=== PATIENT | male | born 1970 | race Caucasian/White ===

== ENCOUNTER 2018-06-13 05:20 | Inpatient (IN) ==
[2018-06-07 15:41] LABS: Basophils # (Auto) 0 K/mcL (0.0-0.3); Basophils % (Auto) 0.3 % (0.0-2.0); Eosinophils # (Auto) 0.1 K/mcL (0.0-0.7); Eosinophils % (Auto) 1.3 % (0.0-7.0); Lymphocytes # (Auto) 1.9 K/mcL (1.5-4.8); Lymphocytes % (Auto) 22.5 % (15.5-49.0); Mean Cell Volume 88.2 fL (80.0-100.0); Mean Corpuscular HGB Conc 32.8 g/dL (31.0-36.0); Monocytes # (Auto) 0.8 K/mcL (0.1-0.9); Monocytes % (Auto) 8.9 % (1.0-12.0); Platelet Count 406 K/mcL (140-440); RBC 5.19 M/mcL (4.50-5.90); Red Cell Distribution Width 12.9 % (11.5-14.5)
[2018-06-07 16:25] LABS: Appearance,Urine CLEAR; Bilirubin,Urine NEG (NEG); Color,Urine YELLOW; Glucose,Urine (UA) NEGATIVE (NEG); Leukocyte Esterase,Urine NEG /uL (NEG); Protein,Urine NEG (NEG); Specific Gravity,Urine 1.019 (1.000-1.035); Urine Blood NEG mg/dL (<0.03); Urobilinogen,Urine NEG (NEG)
[2018-06-07 16:34] LABS: Blood Urea Nitrogen 16 mg/dl (6-20)
[2018-06-13] MEDS ORDERED: PREGABALIN 75 MG CAPSULE PO SCH (07:00)
[2018-06-13] MEDS ORDERED: 0.9 % SODIUM CHLORIDE 9 ML, KETOROLAC 30 MG, ROPIVACAINE HCL/PF 49.5 ML, EPINEPHrine 0.... IJ SCH (07:00)
[2018-06-13] MEDS ORDERED: oxyCODONE 10 MG TAB.ER.12H PO SCH (07:00)
[2018-06-13] MEDS ORDERED: ceFAZolin 2 GM in DEXTROSE 5% IN WATER 50 ML IV SCH (07:00)
[2018-06-13] MEDS ORDERED: CELECOXIB 200 MG CAPSULE PO SCH (07:00)
[2018-06-13] MEDS ORDERED: SCOPOLAMINE 1 PATCH PATCH TOPICAL ONE (07:04)
[2018-06-13] MEDS ORDERED: MIDAZOLAM 5 MG/5 ML VIAL IV ONE (07:30)
[2018-06-13] MEDS ORDERED: PROPOFOL 200 MG/20 ML VIAL IV ONE (07:30)
[2018-06-13] MEDS ORDERED: LIDOCAINE HCL/PF 100 MG/5 ML SYRINGE IV ONE (07:30)
[2018-06-13] MEDS ORDERED: ePHEDrine 50 MG/ML AMPUL IV ONE (07:30)
[2018-06-13] MEDS ORDERED: PHENYLEPHRINE 10 MG/ML VIAL IV ONE (07:30)
[2018-06-13] MEDS ORDERED: TRANEXAMIC ACID 1,000 MG/10 ML VIAL IV ONE (07:30)
[2018-06-13] MEDS ORDERED: ROPIVACAINE HCL/PF 20 ML VIAL IJ ONE (07:30)
[2018-06-13] MEDS ORDERED: DEXAMETHASONE 4 MG/ML VIAL IV ONE (07:30)
[2018-06-13] MEDS ORDERED: GENTAMICIN SULFATE 800 MG/20 ML VIAL IR ONE (08:17)
--- NOTE | 2018-06-13 09:13 | Brief Operative Note ---
Date of procedure: 06/13/18 Pre-op diagnosis: right knee osteoarthritis, retained hardware Post-op diagnosis: same Procedure: right total knee arthroplasty, hardware removal Grafts/Implants: Yes Anesthesia: spinal Complications: none Surgeon: Ilir Alvarado Mail Processor: eBcky Gotti Estimated blood loss (cc): 150 Tourniquet Time (Minutes): 72 Specimens Removed/Pathology: none sent Condition: stable Disposition: PACU
[2018-06-13] MEDS ORDERED: MAG HYDROX/AL HYDROX/SIMETH 30 ML ORAL.SUSP PO PRN (09:14)
[2018-06-13] MEDS ORDERED: BENZOCAINE/MENTHOL 1 LOZENGE PO PRN (09:14)
[2018-06-13] MEDS ORDERED: MAGNESIUM HYDROXIDE 30 ML ORAL.SUSP PO PRN (09:14)
[2018-06-13] MEDS ORDERED: POLYETHYLENE GLYCOL 3350 17 GM PACKET PO PRN (09:14)
[2018-06-13] MEDS ORDERED: BISACODYL 10 MG SUPP.RECT PR PRN (09:14)
[2018-06-13] MEDS ORDERED: FLEETS ADULT ENEMA PR PRN (09:14)
[2018-06-13] MEDS ORDERED: TRANEXAMIC ACID 1,000 MG/10 ML VIAL IV SCH (09:14)
[2018-06-13] MEDS ORDERED: ONDANSETRON 4 MG ODT TABLET SL PRN (09:14)
[2018-06-13] MEDS ORDERED: diphenhydrAMINE 50 MG/ML VIAL IV PRN (09:34)
[2018-06-13] MEDS ORDERED: IPRATROPIUM/ALBUTEROL 3 ML AMPUL.NEB NEB PRN (09:34)
[2018-06-13] MEDS ORDERED: HYDROmorphone 2 MG/ML VIAL IV PRN (09:34)
[2018-06-13] MEDS ORDERED: ONDANSETRON 4 MG/2 ML VIAL IV PRN (09:34)
[2018-06-13] MEDS ORDERED: FLUMAZENIL 0.1 MG/ML ML IV PRN (09:34)
[2018-06-13] MEDS ORDERED: ePHEDrine 50 MG/ML AMPUL IV PRN (09:34)
[2018-06-13] MEDS ORDERED: KETOROLAC 15 MG/ML VIAL IV PRN (09:34)
[2018-06-13] MEDS ORDERED: ACETAMINOPHEN 1,000 MG/100 ML BOTTLE IV ONE (09:34)
[2018-06-13] MEDS ORDERED: METHOCARBAMOL 1,000 MG/10 ML VIAL IV PRN (09:34)
[2018-06-13] MEDS ORDERED: NALOXONE HCL 0.4 MG/ML VIAL IV PRN (09:34)
[2018-06-13] MEDS ORDERED: MEPERIDINE 25 MG/ML SYRINGE IV PRN (09:34)
[2018-06-13] MEDS ORDERED: ATROPINE SULFATE 0.4 MG/ML VIAL IV PRN (09:34)
[2018-06-13] MEDS ORDERED: METOPROLOL TARTRATE 5 MG/5 ML VIAL IV PRN (09:34)
[2018-06-13] MEDS ORDERED: LACTATED RINGERS 1,000 ML IV SCH (09:45)
[2018-06-13] MEDS: fentaNYL 100 MCG/2 ML VIAL IV PRN ×4 (09:59→10:09)
--- NOTE | 2018-06-13 09:59 | XRay Report ---
CLINICAL INFORMATION: Post-Op Total Knee COMPARISON: None. FINDINGS: Total knee prosthesis is anatomically aligned. No osseous abnormality. Periarticular gas and soft tissue is seen as expected IMPRESSION: Negative Interpreted and Authenticated by: Ilir Cota 06/13/18
[2018-06-13] MEDS: 0.9 % SODIUM CHLORIDE 1,000 ML IV SCH ×2 (10:29→18:19)
[2018-06-13] MEDS: KETOROLAC 15 MG/ML VIAL IV SCH ×3 (11:00→23:24)
--- NOTE | 2018-06-13 11:40 | Operative Note ---
DATE OF OPERATION: 06/13/2018 PREOPERATIVE DIAGNOSES: 1. Degenerative joint disease, right knee. 2. Right knee retained hardware. POSTOPERATIVE DIAGNOSES: 1. Degenerative joint disease, right knee. 2. Right knee retained hardware. PROCEDURE PERFORMED: 1. Right total knee arthroplasty. 2. Right knee hardware removal. SURGEON: Polo Alvarado M.D. AUTOMATION SPECIALIST SURGEON: Becky Gotti PA-C. ANESTHESIA: Spinal with LMA assist. ESTIMATED BLOOD LOSS: 150 mL. COMPLICATIONS: None noted. SPECIMENS REMOVED: None. DRAINS: None. TOURNIQUET TIME: 72 minutes at 300 mmHg. IMPLANTS: DePuy CMW2 bone cement 20 grams x4; DePuy Attune femoral posterior stabilized size 7 right, cemented; DePuy Attune tibial insert fixed bearing posterior stabilized size 7, 10 mm AOX; DePuy Attune tibial base fixed bearing size 6, cemented; DePuy Attune patella medialized dome 38 mm cemented AOX. INDICATIONS: The patient has had a long-standing history of worsening pain in the knee that has failed conservative treatment. Radiographs have confirmed advanced degenerative joint disease. After a long discussion about treatment options, the patient elected to proceed with a knee arthroplasty. The risks and benefits were discussed with the patient in detail including, but not limited to, the risks of anesthesia, problems with the heart or lungs related to anesthesia, infection, compromise or injury to the nerves and blood vessels, deep venous thrombosis, pulmonary embolism, pneumonia, continued pain after surgery, worsening pain or symptoms after surgery, swelling, loss of motion, instability, leg length discrepancy, and need for repeat surgery. DESCRIPTION OF PROCEDURE: The patient was seen in the pre-anesthesia waiting room where all questions were answered and the correct side and site were identified and marked. The patient was transferred to the operating room and administered the anesthetic and given pre-operative antibiotics. A time-out was then called. The extremity was prepped and draped, exsanguinated, and the tourniquet was inflated to 300 mmHg. A midline skin incision was then made with a standard medial parapatellar arthrotomy. Debridement of the menisci, ACL, and PCL was performed followed by balancing releases in the medial lateral plane. We dissected down along the tibial tubercle and established and visualized the two tibial screws. A 3.5 screwdriver bit was placed, and we were able to back out both of the screws. We used a rongeur to debride the area around the screw bases. We then established intramedullary access to both the femur and tibia in a standard fashion. The femoral guide reynaldo was initially placed with the distal femoral guide, pinned into place, and the distal femoral cut was performed and checked with a flat plate. We then turned our attention to the tibia. The intramedullary guide was placed with the proximal tibial cutting block. The block was appropriately positioned off the affected side, varus and valgus was checked with the extra-medullary guide, and the block was pinned into place. The proximal tibial cut was performed and the tibia was prepared for the tibial implant with appropriate rotation. The tibia, femur, and posterior compartment were debrided of osteophytes, loose bodies, and meniscal fragments We then used the gap balancing technique to balance extension with the first two cuts and good balancing was obtained with a 10 millimeter gap block. We turned our attention back to the femur and used the referencing block and implant to size appropriately. Using the gap balancing technique for the flexion space we set our rotation of the femur off the tibial cut. Anesthesia gave the patient 1 gram of Tranexamic Acid via an intravenous route. We placed the 4 in 1 cutting block and made anterior, posterior, and chamfer cuts. Box plasty cuts were then made in a standard fashion for the posterior stabilized prosthesis. We then completed osteophyte release and posterior capsule release from the posterior compartment. Trials were placed and we chose the polyethylene insert thickness that provided the best stability in all planes. With the trials in place, we did a measured resection for a resurfacing patella. We sized the patella and placed the patella trial and performed a lateral facetectomy with the saw and rongeur. Good tracking was obtained. We removed all trials, irrigated and dried all cut surfaces. We cemented the components into place including tibia, femur and patella. We placed a trial liner and held the knee in full extension with the patella compressed while the cement cured. We then removed all excess cement and placed the final polyethylene tibiofemoral component. Irrigation with 3 liters of antibiotic saline was then performed using jet-lavage. We let the tourniquet down and coagulated bleeding vessels. We injected a 100 cubic centimeter volume including Ropivacaine 49.25 cubic centimeters at 5 milligrams per cubic centimeter, Ketorolac 30 milligrams, and Epinephrine 0.5 milligrams into 100 cubic centimeters volume of normal saline. We closed the retinaculum with #2 Stratafix and 0 Vicryl. We closed the subcutaneous tissue and skin in layers out to Dermabond on the skin. A sterile pressure dressing was applied. All needle and sponge counts were correct. The patient was transferred to the recovery room in stable condition. ALLI:luci Job ID: [id number] Doc ID: [id number] Polo Alvarado MD
[2018-06-13] MEDS: HYDROcodone/APAP 10/325MG TABLET PO PRN ×4 (12:10→20:51)
[2018-06-13] MEDS: METHOCARBAMOL 750 MG TABLET PO PRN ×2 (12:10→18:04)
[2018-06-13] MEDS: 0.9 % SODIUM CHLORIDE 10 ML SYRINGE IV SCH ×2 (14:41→20:52)
[2018-06-13] MEDS: ceFAZolin 1 GM VIAL IV SCH ×2 (16:39→23:25)
[2018-06-13] MEDS: ONDANSETRON 4 MG/2 ML VIAL IV PRN ×2 (17:27→20:52)
[2018-06-13] MEDS: SENNOSIDES 1 TABLET PO SCH (20:51)
[2018-06-13] MEDS: ASPIRIN 325 MG ENTERIC COATED TABLET PO SCH (20:51)
[2018-06-13] MEDS: DOCUSATE SODIUM 100 MG CAPSULE PO SCH (20:52)
[2018-06-14] MEDS: HYDROcodone/APAP 10/325MG TABLET PO PRN ×5 (01:24→20:27)
[2018-06-14] MEDS: 0.9 % SODIUM CHLORIDE 1,000 ML IV SCH ×3 (01:55→15:33)
[2018-06-14] MEDS: KETOROLAC 15 MG/ML VIAL IV SCH ×3 (05:01→17:37)
[2018-06-14] MEDS: 0.9 % SODIUM CHLORIDE 10 ML SYRINGE IV SCH ×3 (05:08→20:24)
--- NOTE | 2018-06-14 07:03 | Orthopedic Progress Note ---
Subjective Patient information: Note initiated : 06/14/18 at 7:01 am Service Date, if different from initiated Date: [] Patient: John Brewer a 47 y/o M admitted on 06/13/18 for Right Total Knee Arthoplasty. Chief Complaint: [POD #1 s/p right TKA Doing well. Reports moderate pain and requesting higher dose pain medication. Denies CP, SOB, numbness, tingling, calf pain. Is fearful to go home today because he has no help at home until tomorrow.] Objective Vital signs: Vital Signs Temp Pulse Pulse Resp BP BP Pulse Ox 06/14/18 03:54 98.0 F 68 12 100/66 95 06/13/18 23:24 98.0 F 71 12 100/59 93 06/13/18 18:40 98.1 F 81 12 113/70 95 06/13/18 14:43 83 117/69 95 06/13/18 13:26 88 124/75 93 06/13/18 12:41 75 118/66 96 06/13/18 11:56 87 126/88 95 06/13/18 11:27 74 131/80 97 06/13/18 11:11 68 119/80 95 06/13/18 10:56 68 111/69 95 06/13/18 10:42 64 115/69 97 06/13/18 10:30 98 06/13/18 10:26 72 119/75 98 06/13/18 10:15 97.4 F 72 14 135/76 98 06/13/18 10:00 97.5 F 69 16 129/73 100 06/13/18 09:45 97.5 F 71 13 130/64 100 06/13/18 09:40 64 12 116/59 94 06/13/18 09:35 64 12 121/64 152/96 95 06/13/18 09:30 97.5 F 70 12 126/61 96 Intake and Output 06/13/18 06/14/18 06/14/18 21:59 05:59 13:59 Intake Total 1779 900 Balance 1779 900 Intake: IV 979 Sodium Chloride 0.9% 1,000 ml @ 979 125 mls/hr IV .Q8H ADONIS Rx#: [id number] Oral 800 900 Other: # Voids 1 Weight 186 lb 8 oz Intake & Output: Intake & Output 04/16/19 04/17/19 04/17/19 21:59 05:59 13:59 Intake Total 1779 900 Balance 1779 900 Weight 186 lb 8 oz Intake: IV 979 Sodium Chloride 0.9% 1,000 ml @ 979 125 mls/hr IV .Q8H ADONIS Rx#: [id number] Oral 800 900 Other: # Voids 1 Incision: Yes healing, No draining, No red, No swollen, No inflamed, Yes clean and dry Incision clean and dry: Yes Dressing: Yes clean, Yes dry, Yes intact Weight bearing status: as tolerated Neurological exam IM: Yes alert, Yes oriented X3, Yes motor sensory intact, Yes neurovascular intact Extremities exam IM: No calf tenderness, Yes Foot pink and warm, Yes neurovascular intact - Periperhal Pulses Peripheral pulses: 2+: dorsalis pedis (L), dorsalis pedis (R), posterior tibialis (L), posterior tibialis (R) - Labs CBC & BMP: 06/14/18 04:02 06/07/18 13:24 Labs: Orthopedic Labs 06/07/18 13:25 PT 13.4 INR 1.0 06/14/18 06/07/18 04:02 13:25 Hgb 11.1 L 15.0 Hct 33.6 L 45.8 Assessment and Plan (1) Knee osteoarthritis POD #1 s/p right TKA: -d/c planning to home tomorrow -pain control: Hydrocodone 10mg q 4-6 1-2 tabs prn. Robaxin prn Q6. Percocet only if pain not controlled by 2 tabs Hydrocodone and Robaxin -ice -WBAT -dermabond Status: Acute
--- NOTE | 2018-06-14 07:07 | Discharge Summary ---
Ortho Discharge - TKA - Patient Instructions Diet: Regular Diet Activity: weight bearing as tolerated Total Knee Protocol: For Total Knee: Start ROM KEISHA with stationary bike or rocking chair. Work on gaining full extension of knee. Posterior dislocation precautions provided. Hip abductor strengthening and gait training instructions provided. Apply Cryocuff as instructed. Dressing Care: May shower in 2 days, Other (dermabond) - Problem Maintenance (1) Knee osteoarthritis Status: Acute - Follow Up Plan Follow Up Appointments: Becky Gotti PA-C [Physician Infant And Toddler Teacher] - 06/28/18 9:40 am Disposition: Home, Self-Care Prognosis: Good Rehab Potential: Good I certify that the patient requires SNF services: No Overall status at discharge: patient is progressing back to baseline - Orders For Discharge Prescriptions: Aspirin [Ecotrin] 325 mg PO BID #[email or web address] [email or web address] Additional Discharge Orders: Physical Therapy at Discharge - TKA Location: None Selected Walker Location: None Selected
[2018-06-14] MEDS: oxyCODONE/APAP 10/325MG TABLET PO PRN ×4 (07:20→22:48)
[2018-06-14] MEDS: METHOCARBAMOL 750 MG TABLET PO PRN ×3 (07:20→22:48)
[2018-06-14] MEDS: PANTOPRAZOLE 40 MG TABLET PO SCH (07:36)
[2018-06-14] MEDS: DOCUSATE SODIUM 100 MG CAPSULE PO SCH ×2 (08:02→20:23)
[2018-06-14] MEDS: HYDROCHLOROTHIAZIDE 12.5 MG CAPSULE PO SCH ×2 (08:02→08:07)
[2018-06-14] MEDS: LISINOPRIL 10 MG TABLET PO SCH ×2 (08:03→08:07)
[2018-06-14] MEDS: ASPIRIN 325 MG ENTERIC COATED TABLET PO SCH ×2 (08:03→20:23)
[2018-06-14] MEDS: SENNOSIDES 1 TABLET PO SCH (20:23)
[2018-06-15] MEDS: KETOROLAC 15 MG/ML VIAL IV SCH ×2 (00:05→06:06)
[2018-06-15] MEDS: HYDROcodone/APAP 10/325MG TABLET PO PRN (03:33)
[2018-06-15] MEDS: 0.9 % SODIUM CHLORIDE 1,000 ML IV SCH ×2 (03:34→08:20)
[2018-06-15] MEDS: 0.9 % SODIUM CHLORIDE 10 ML SYRINGE IV SCH ×2 (06:06→14:54)
[2018-06-15] MEDS: oxyCODONE/APAP 10/325MG TABLET PO PRN ×3 (07:17→14:54)
[2018-06-15] MEDS: METHOCARBAMOL 750 MG TABLET PO PRN ×2 (07:21→15:48)
[2018-06-15] MEDS ORDERED: oxyCODONE/APAP 5/325MG TABLET PO PRN (07:21)
--- NOTE | 2018-06-15 07:22 | Orthopedic Progress Note ---
Subjective Patient information: Note initiated : 06/15/18 at 7:22 am Service Date, if different from initiated Date: [] Patient: John Brewer 47 y/o M admitted on 06/13/18 for Right Total Knee Arthoplasty. Chief Complaint: [] Interval history: doing better. pain under better control Objective Vital signs: Vital Signs Temp Pulse Resp BP Pulse Ox 06/15/18 03:37 97.3 F 77 16 122/81 94 06/14/18 22:53 97.6 F 72 17 119/78 96 06/14/18 19:15 97.9 F 90 18 123/77 95 06/14/18 16:00 70 06/14/18 15:32 98.3 F 70 14 107/72 92 06/14/18 12:35 97.4 F 71 12 110/68 95 06/14/18 12:00 79 06/14/18 11:57 98.1 F 79 12 112/67 92 06/14/18 08:00 97.8 F 79 14 113/73 Intake and Output 06/14/18 06/15/18 06/15/18 21:59 05:59 13:59 Intake Total 1490 300 Balance 1490 300 Intake: Oral 240 300 GI Tube Flush 1250 Other: Meal Breakfast Percent of Meal Consumed 100% # Voids 1 1 Weight 190 lb Intake & Output: Intake & Output 06/14/18 06/15/18 06/15/18 21:59 05:59 13:59 Intake Total 1490 300 Balance 1490 300 Weight 190 lb Intake: Oral 240 300 GI Tube Flush 1250 Other: Meal Breakfast Percent of Meal Consumed 100% # Voids 1 1 - Labs CBC & BMP: 06/15/18 04:05 06/07/18 13:24 Labs: Orthopedic Labs 06/07/18 13:25 PT 13.4 INR 1.0 06/15/18 06/14/18 06/07/18 04:05 04:02 13:25 Hgb 11.2 L 11.1 L 15.0 Hct 33.3 L 33.6 L 45.8
--- NOTE | 2018-06-15 07:24 | Orthopedic Progress Note ---
Subjective Patient information: Note initiated : 06/15/18 at 7:23 am Service Date, if different from initiated Date: [] Patient: John Brewer 47 y/o M admitted on 06/13/18 for Right Total Knee Arthoplasty. Chief Complaint: [] Interval history: doing well. pain better control Objective Vital signs: Vital Signs Temp Pulse Resp BP Pulse Ox 06/15/18 03:37 97.3 F 77 16 122/81 94 06/14/18 22:53 97.6 F 72 17 119/78 96 06/14/18 19:15 97.9 F 90 18 123/77 95 06/14/18 16:00 70 06/14/18 15:32 98.3 F 70 14 107/72 92 06/14/18 12:35 97.4 F 71 12 110/68 95 06/14/18 12:00 79 06/14/18 11:57 98.1 F 79 12 112/67 92 06/14/18 08:00 97.8 F 79 14 113/73 Intake and Output 06/14/18 06/15/18 06/15/18 21:59 05:59 13:59 Intake Total 1490 300 Balance 1490 300 Intake: Oral 240 300 GI Tube Flush 1250 Other: Meal Breakfast Percent of Meal Consumed 100% # Voids 1 1 Weight 190 lb Intake & Output: Intake & Output 06/14/18 06/15/18 06/15/18 21:59 05:59 13:59 Intake Total 1490 300 Balance 1490 300 Weight 190 lb Intake: Oral 240 300 GI Tube Flush 1250 Other: Meal Breakfast Percent of Meal Consumed 100% # Voids 1 1 Incision: Yes healing Incision clean and dry: Yes Dressing: Yes clean, Yes dry, Yes intact Weight bearing status: full Neurological exam IM: Yes alert, Yes oriented X3, Yes neurovascular intact Extremities exam IM: No calf tenderness, Yes Foot pink and warm, Yes neurovascular intact - Labs CBC & BMP: 06/15/18 04:05 06/07/18 13:24 Labs: Orthopedic Labs 06/07/18 13:25 PT 13.4 INR 1.0 06/15/18 06/14/18 06/07/18 04:05 04:02 13:25 Hgb 11.2 L 11.1 L 15.0 Hct 33.3 L 33.6 L 45.8 Assessment and Plan (1) Knee osteoarthritis pod 2 s/p tka pain control dvt prophylaxis PT d/c planning - home today Status: Acute
[2018-06-15] MEDS: DOCUSATE SODIUM 100 MG CAPSULE PO SCH (08:05)
[2018-06-15] MEDS: HYDROCHLOROTHIAZIDE 12.5 MG CAPSULE PO SCH (08:05)
[2018-06-15] MEDS: ASPIRIN 325 MG ENTERIC COATED TABLET PO SCH (08:05)
[2018-06-15] MEDS: LISINOPRIL 10 MG TABLET PO SCH (08:05)
[2018-06-15] MEDS: PANTOPRAZOLE 40 MG TABLET PO SCH (08:07)
== END 2018-06-15 16:15 | disposition home or self-care (01) | DRG 470 ==
LOC: MEDSUR 05:20
PROVIDERS: ADMIT Orthopaedic Surgery Sports Medicine; ATTEND Orthopaedic Surgery Sports Medicine